=== PATIENT | female | born 1980 ===

== ENCOUNTER 2017-11-13 15:38 | Inpatient (IN) | payer OTHER ==
[~2017-11-13] VITALS: Ht 165.1 cm; Wt 68.5 kg
[2017-11-14] MEDS ORDERED: ATABEX EC CAPL1 EACH PO (12:03)
[2017-11-14] MEDS ORDERED: FOLIC ACID1 MG PO (12:04)
== END 2017-11-16 15:42 | DRG 775 ==
LOC: LDR 15:38 → OB/GYN 17:30
PROC: 0UQGXZZ Repair Vagina, External Approach (ICD-10-PCS; principal; 2017-11-13)
PROC: 10E0XZZ Delivery of Products of Conception, External Approach (ICD-10-PCS; 2017-11-13)
PROC: 4A1HXCZ Monitoring of Products of Conception, Cardiac Rate, External Approach (ICD-10-PCS; 2017-11-13)
PROC: 4A033R1 Measurement of Arterial Saturation, Peripheral, Percutaneous Approach (ICD-10-PCS; 2017-11-13)
DX: O71.4 Obstetric high vaginal laceration alone (principal); Z3A.38 38 weeks gestation of pregnancy; Z37.0 Single live birth